=== PATIENT | female | born 1955 | race Two or more races ===

== ENCOUNTER → 2024-08-28 | Outpatient (CLI) | payer MEDICARE, SELFPAY ==
[2024-08-28 17:31] LABS: INR 1.9 (0.9-1.3); Prothrombin Time 19.7 Seconds (9.0-12.2)
== END | disposition home or self-care (01) ==
PROVIDERS: PCP Physician Assistant; Referring Provider Physician Assistant; Visit Provider Physician Assistant
DX: Z79.01 Long term (current) use of anticoagulants (principal)
CPT/HCPCS: 36415; 85610

== ENCOUNTER → 2024-09-04 | Outpatient (CLI) | payer MEDICARE, SELFPAY ==
[2024-09-04 13:47] LABS: INR 1.9 (0.9-1.3); Prothrombin Time 20.3 Seconds (9.0-12.2)
== END | disposition home or self-care (01) ==
LOC: COPL 11:48 → SLDO 11:48
PROVIDERS: PCP Physician Assistant; Referring Provider Physician Assistant; Visit Provider Physician Assistant
DX: I48.20 Chronic atrial fibrillation, unspecified (principal); Z51.81 Encounter for therapeutic drug level monitoring; Z95.2 Presence of prosthetic heart valve
CPT/HCPCS: 36415; 85610

== ENCOUNTER → 2025-01-31 | Outpatient (CLI) | payer OTHER, MEDICAID, SELFPAY ==
--- NOTE | 2025-01-31 10:53 | XR_ITS ---
Examinations: MRI Brain without intravenous contrast. MRI brain with intravenous contrast MRA brain with intravenous contrast. MRA brain without intravenous contrast MRA neck with intravenous contrast Date and time of exam: January 31, 2025 11:59 AM INDICATIONS: Slurred speech ataxia dizziness beginning 3 weeks ago COMPARISON: October 28, 2020 Technique: Multiple axial and sagittal images of the brain have been obtained Siemens high-resolution 1.5 Suzi short bore scanner is utilized. Sagittal sections, T1-weighted, TR 500, TE 14 Axial sections proton density and T2-weighted, TR 3,000, TE 34, TR 3,000, TE 91 Inversion recovery axial images, TR 9,260, TE 111, TI 2,500 Diffusion weighted images, axial sections, TR 4,800, TE 128, B value 1,000 Axial sections, ADC map, TR 4,800, TE 128. Contrast images have been obtained post intravenous 20 cc Gadolinium. T1-weighted axial and coronal images post contrast have been obtained. Angiographic images of neck and brain are obtained pre and post contrast. 3-D post processing performed, including brain, extracranial neck arterial maximum intensity projections Findings: Sellaturcica is not enlarged. The optic chiasm and infundibular stalk are not remarkable. Prepontine and interpeduncular cisterns are not enlarged. No localized enlargement of the medulla or luis miguel. Fourth ventricle and cerebellar tonsils normal in position. Subacute hemorrhage is not seen. Fourth ventricle is midline. Mass in the cerebellopontine angle region is not evident. 7th and 8th nerve complexes exhibits symmetry. Globes are symmetrical with no retro-orbital mass. Increased white matter signal moderate, old infarcts right and left cerebellar hemispheres right and left basal ganglia right frontal lobes left parietal lobe Diffusion-weighted images demonstrateno focus restricted diffusion. Mass-effect upon the ventricular system is not identified. Abnormal contrast enhancement is not seen. MRA brain carotid images no significant carotid stenoses no large vessel cerebral occlusions Impression: Negative for acute hemorrhage mass effect or midline shift No acute infarct Multiple old infarcts No cerebral large vessel arterial occlusions
== END | disposition home or self-care (01) ==
PROVIDERS: PCP Physician Assistant; Referring Provider Physician Assistant; Visit Provider Physician Assistant
DX: R47.81 Slurred speech (principal); R26.81 Unsteadiness on feet; Z86.73 Personal history of transient ischemic attack (TIA), and cerebral infarction without residual deficits
CPT/HCPCS: 70546; 70548; 70553; A9579

== ENCOUNTER 2025-02-10 12:06 | Emergency (ER) | payer OTHER, MEDICAID, SELFPAY ==
[2025-02-10 12:42] VITALS: BP 95/62; PULSE 85; RESP 19; TEMP 36.7; O2SAT 100
--- NOTE | 2025-02-10 12:49 | XR_ITS ---
Examination: CT pelvis left hip, without contrast. 2-D sagittal reconstructions. 2-D coronal reconstructions. 3-D reconstructions. Date and time of exam:February 10, 2025 1527 hours INDICATIONS: Patient fell today with injury to left hip, left hip pain CTDI: vol (mGy):5.81 DLP: (mGycm):159 Technique: Multiple 1.25 mm axial sections of the pelvis left hip have been obtained. 2-D sagittal and coronal reconstructions have been obtained. 3-D reconstructions have been obtained. Low dose protocols were performed. One or more of the following dose reduction techniques were used; automated exposure control, adjustment of the mA and/or KV according to patient size, use of iterative reconstruction technique. Findings: Contracted urinary bladder, no pelvic hematoma No left hip fracture or dislocation Right hip bones of the pelvis intact IMPRESSION: No acute hip or pelvic fracture
--- NOTE | 2025-02-10 12:49 | EKG_ITS ---
[facility] Test Date: 2025-02-10 Pat Name: ROBEL RUSSO Department: Room: - Gender: Female Education Adviser: : 1955 Requested By: Brenden Cabrera (LETY) Order Number: [id number] Reading MD: Brenden Cabrera (BUTTONHOLER) Measurements Intervals [place] Rate: 67 P: 75 [place]: 217 QRS: 18 QRSD: 92 T: 246 QT: 445 QTc: 472 Interpretive Statements SINUS RHYTHM WITH FIRST DEGREE AV BLOCK ST DEVIATION AND MODERATE T-WAVE ABNORMALITY, CONSIDER ANTEROLATERAL ISCHEMIA [-0.1+ mV T-WAVE IN V3-V6] ST DEVIATION AND MODERATE T-WAVE ABNORMALITY, CONSIDER INFERIOR ISCHEMIA [-0.1+ mV T-WAVE IN II/aVF] Compared to ECG 07/25/2024 15:02:13 First degree AV block now present Possible ischemia now present Atrial flutter no longer present Intraventricular conduction delay no longer present T-wave abnormality still present /store/S0/[id number]/[id number].pdf
--- NOTE | 2025-02-10 12:49 | XR_ITS ---
Examination: CT cervical spine without contrast 2-D sagittal reconstructions 2-D coronal reconstructions 3-D reconstructions. Exam date and time:February 10, 2025 1519 hours INDICATIONS: Patient fell today with into the neck, neck pain CTDI:vol (mGy) 7.88 DLP: (mGycm) 165 Technique: Multiple 2 mm axial sections of the cervical spine have been obtained. The coronal and sagittal reconstructions have been obtained. 3-D reconstructions have been obtained. Low dose protocols were performed. One or more of the following dose reduction techniques were used; automated exposure control, adjustment of the mA and/or KV according to patient size, use of iterative reconstruction technique. Findings: Axial sections demonstrate intact base of the skull. C1 exhibit satisfactory relationship to the odontoid. No acute cervical vertebral body fracture seen. Alignment posterior spinous processes satisfactory. Impression: No acute cervical fracture.
--- NOTE | 2025-02-10 12:49 | XR_ITS ---
Examination: CT brain head without contrast. 2-D sagittal coronal reconstructions Date and time of exam:05/13/2025 1418 hours INDICATIONS: Patient fell today with injury to the head, head pain COMPARISON: July 25, 2024 CTDI: vol (mGy):45.5 DLP: (mGycm):844 Technique: Multiple CT axial sections of the brain have been obtained, 5 mm slice thickness. Contrast has not been administered. 2-D sagittal, coronal reconstructions have been obtained Low dose protocols were performed. One or more of the following dose reduction techniques were used; automated exposure control, adjustment of the mA and/or KV according to patient size, use of iterative reconstruction technique. Findings: No significant ventricular enlargement. Intra-axial or extra-axial hemorrhage density is not seen. No mass effect or midline shift Basal cisterns are not remarkable. Fourth ventricle is midline. Cranial vault intact. Old infarcts right frontal lobe left parietal lobe, left cerebellar hemisphere Impression: Negative for acute hemorrhage, mass effect or midline shift
--- NOTE | 2025-02-10 12:50 | PD.EDRME ---
Rapid Medical Screening Exam RME Arrival date/time: 02/10/25 12:06 69-year-old female presents emergency department today stating she had a fall yesterday patient reports left hip pain head and neck pain Chief Complaint: Fall Vital signs: Vital Signs Temperature 98.1 F 02/10/25 12:42 Pulse Rate 85 02/10/25 12:42 Respiratory Rate 19 02/10/25 12:42 Blood Pressure 95/62 02/10/25 12:42 Pulse Oximetry (%) 100 02/10/25 12:42 Oxygen Delivery Method Room Air 02/10/25 12:42
[2025-02-10 13:41] LABS: Basophils # (Auto) 0.1 Thou/mm3 (0.0-0.2); Basophils % (Auto) 1 % (0-2.5); Eosinophils # (Auto) 0.2 Thou/mm3 (0.0-0.5); Eosinophils % (Auto) 4 % (0-10); Hemoglobin 13.1 g/dL (12.0-16.0); Immature Granulocytes % (Auto) 0 % (0-0); Immature Granulocytes Auto 0.01 Thou/mm3 (0.00-0.00); Lymphocytes # (Auto) 1.2 Thou/mm3 (1.0-4.8); Lymphocytes % (Auto) 20 % (10-50); Mean Corpuscular HGB Conc 36.4 g/dl (31.0-37.0); Mean Corpuscular Hemoglobin 29.3 pg (25.0-35.0); Mean Corpuscular Volume 81 fL (80-100); Monocytes # (Auto) 0.4 Thou/mm3 (0.0-0.8); Monocytes % (Auto) 6 % (0-12); Neutrophils # (Auto) 4.2 Thou/mm3 (1.8-7.7); Neutrophils % (Auto) 70 % (37-80); Nucleated Red Blood Cell % 0 /100 WBC (0); Platelet Count 181 Thou/mm3 (140-440); RDW Standard Deviation 39.4 fL (36.4-46.3); Red Blood Count 4.47 Miln/mm3 (4.00-5.20)
[2025-02-10 13:46] LABS: B-Type Natriuretic Peptide 58 pg/mL (0-100)
[2025-02-10 13:54] LABS: Alanine Aminotransferase 97 U/L (10-49); Albumin, Serum 4.1 gm/dL (3.4-4.8); Albumin/Globulin Ratio 1.6 (1.2-2.2); Alkaline Phosphatase 72 U/L (46-116); Anion Gap 11 (7-16); Aspartate Amino Transferase 61 U/L (0-34); BUN/Creatinine Ratio 12 Ratio (12-20); Bilirubin,Total 0.5 mg/dL (0.3-1.2); Blood Urea Nitrogen 21 mg/dL (9-23); Calcium 8.9 mg/dL (8.3-10.6); Calcium (Corrected) 8.9 mg/dL (8.5-10.1); Carbon Dioxide 28.8 mMol/L (20.0-31.0); Chloride 97 mMol/L (98-107); Creatinine (Component) 1.8 mg/dL (0.6-1.3); Globulin 2.6 gm/dL (2.3-3.5); INR 2.9 (0.9-1.3); Magnesium 1.8 mg/dL (1.6-2.6); Osmolality,Calculated 293 (275-295); Partial Thromboplastin Time 40.3 Seconds (22.0-36.0); Potassium 3.2 mMol/L (3.4-5.1); Sodium 137 mMol/L (136-145); Total Protein 6.7 gm/dL (5.7-8.2); Troponin I < 0.020 ng/mL (0.0-0.045); eGFR 30 See Note
[2025-02-10 13:56] LABS: Glucose 405 mg/dL (74-106)
--- NOTE | 2025-02-10 17:00 | PC.NURSE ---
FERNANDO IN LAB CALLED W/ GLUCOSE OF 405. PUT IN COMMENTS FOR PROVIDER TO SEE.
--- NOTE | 2025-02-10 17:14 | PC.NURSE ---
REMINDED MD AND BUSINESS ANALYST OF PT'S GLUCOSE OF 405 AND GAVE THEM PAPER NOTE.
[2025-02-10 18:31] VITALS: BP 117/66; PULSE 76; RESP 18; TEMP 37.5; O2SAT 99
[2025-02-10 19:27] VITALS: BP 152/83; PULSE 73; RESP 18; TEMP 37.3; O2SAT 100
--- NOTE | 2025-02-10 20:26 | PD.EDADULT ---
ED General RME/HPI General Chief complaint: Fall Stated complaint: FELL YESTERDAY, HIT HEAD, ON WARFARIN Time Seen by Provider: 02/10/25 20:14 Arrival date/time: 02/10/25 12:06 CC: Headache hip pain HPI status post fall yesterday. Patient denies LOC or LOC is not on any blood thinners. Patient is awake alert oriented and frustrated as it did not her 8 hours since the patient was seen patient has been sitting in the waiting room with no medication. Patient denies altered level of consciousness, blurred vision seeing spots. He is complaining of mild headache. RME / HPI RME / HPI narrative: 02/10/25 12:06 69-year-old female presents emergency department today stating she had a fall yesterday patient reports left hip pain head and neck pain Related Data Home Medications ?Medication ?Instructions ?Recorded ?Confirmed rosuvastatin 40 mg tablet 40 mg PO QDAY 09/15/21 07/26/24 aripiprazole 15 mg tablet 15 mg PO QDAY 10/05/23 07/26/24 cetirizine 10 mg tablet 10 mg PO QDAY 10/05/23 07/26/24 hydrochlorothiazide 50 mg tablet 50 mg PO QDAY 10/05/23 07/26/24 hydroxyzine HCl 25 mg tablet 25 mg PO HS 10/05/23 07/26/24 losartan 100 mg tablet 100 mg PO QPM 10/05/23 07/26/24 sertraline 100 mg tablet 200 mg PO HS 10/05/23 07/26/24 trazodone 50 mg tablet 50 mg PO HS 10/05/23 07/26/24 ferrous sulfate 325 mg (65 mg 325 mg PO BIDWMEAL 07/03/24 07/26/24 iron) tablet Previous Rx's ?Medication ?Instructions ?Recorded warfarin 5 mg tablet 5 mg PO QDAY #14 tabs 07/17/24 meloxicam 7.5 mg tablet 7.5 mg PO QDAY #10 tabs 02/10/25 Allergies Allergy/AdvReac Type Severity Reaction Status Date / Time aspirin Allergy Severe Gastrointestinal Verified 02/10/25 12:10 Upset Review of Systems Review of Systems Narrative Review of Systems: GEN: No fever, no chills, no weight loss EYES: No discharge, no visual changes, no pain HEENT: No ear pain, no congestion, no sore throat PULM: No shortness of breath, no cough, no congestion CV: No chest pain, no dyspnea on exertion, no palpitations GI: No nausea, no vomiting, no diarrhea, no pain, no constipation : No frequency, no urgency, no dysuria MUSC/SKEL: No joint pain, no back pain SKIN: No rash PSYCH: No hallucinations, no depression HEME/LYMPH: No easy bleeding or bruising tendencies NEURO: No weakness, + headache ED Exam Narrative Physical exam: [General: In mild discomfort but not in any acute distress Head normocephalic, no step-off induration ulceration or depressions. HEENT: Eyes pupils are PERRLA EOMs are intact mouth pink dry membranes uvula is midline swallow symmetrical phonation is normal. No facial asymmetry or bogginess. Nose: No rhinorrhea or epistaxis. All other subsystems HEENT are within acceptable limits Neck is supple nontender no JVD no tenderness full range of motion flexion extension and rotation. Chest equal chest rise nontender to palpation Respiratory: Clear to auscultation no wheezes crackles or rubs CV: Rate rhythm is regular no murmurs rubs or clicks Abdomen is soft nontender no masses positive bowel sounds all 4 quadrants Back: No CVA tenderness no spinous process tenderness from cervical spine thoracic and lumbar spine Skin: Intact no petechiae rash induration ulceration or crepitus Extremities: Moving all extremity against resistance cap refill less than 2 seconds neurosensory intact Neuro: Awake alert oriented x2, person and place, Glascow coma 15 no focal deficits] Course Course Course Narrative: when comparing her labs with old labs the patient has significant elevated blood glucose level 406, and has a creatinine of 1.8 which is a new acute finding. At this time the patient and the family member extremely frustrated because the long delay in being seen, they are refusing IV fluids for attempt to correct elevated creatinine as this is not prerenal. As an alternative they said they will go home and she will drink plenty of fluids. I agreed to give the patient insulin subcu for the hyperglycemia. This is as a result of mixup in prescriptions and she has not had her insulin medication which includes Jardiance and metformin in close to 1 week. Family member at bedside state that they will pick that up tomorrow. Patient is then to follow-up in the next 2 to 3 days for recheck of her renal function. Quality Measures none Orders Category Date Time Status EKG (ED ONLY) *Do not use* NOW Care 02/10/25 12:[address] cervical spine wo con Stat Exams 02/10/25 12:[address] head/brain wo con Stat Exams 02/10/25 12:[address] hip LT wo con Stat Exams 02/10/25 12:49 Completed EKG (ED Only) Stat Exams 02/10/25 12:49 Draft B-Type Natriuretic Peptide Stat Lab 02/10/25 13:05 Completed CBC Stat Lab 02/10/25 13:05 Completed Comprehensive Metabolic Panel Stat Lab 02/10/25 13:05 Completed Magnesium Stat Lab 02/10/25 13:05 Completed Partial Thromboplastin Time Stat Lab 02/10/25 13:05 Completed Prothrombin Time with INR Stat Lab 02/10/25 13:05 Completed Troponin I Stat Lab 02/10/25 13:05 Completed Type and Screen Stat Lab 02/10/25 13:05 Completed Urinalysis Stat Lab 02/10/25 12:49 Ordered Insulin Regular Med 02/10/25 20:23 Discontinued 5 unit SC X1 ONE oxyCODONE/APAP 5/325 [Percocet 5/325] Med 02/10/25 20:23 Discontinued 1 tab PO X1 ONE Vital Signs Vital signs: Vital Signs Temperature 98.1 F 02/10/25 12:42 Pulse Rate 85 02/10/25 12:42 Respiratory Rate 19 02/10/25 12:42 Blood Pressure 95/62 02/10/25 12:42 Pulse Oximetry (%) 100 02/10/25 12:42 Oxygen Delivery Method Room Air 02/10/25 12:42 Discharge Plan Plan Patient Disposition: HOME (Self Care) Patient condition on transfer: Stable Prescriptions/Referrals Prescriptions/Med Rec: New meloxicam 7.5 mg tablet 7.5 mg PO QDAY Qty: 10 0RF No Action rosuvastatin 40 mg tablet 40 mg PO QDAY trazodone 50 mg Tablet 50 mg PO HS cetirizine 10 mg Tablet 10 mg PO QDAY hydrochlorothiazide 50 mg Tablet 50 mg PO QDAY sertraline 100 mg Tablet 200 mg PO HS hydroxyzine HCl 25 mg Tablet 25 mg PO HS losartan 100 mg Tablet 100 mg PO QPM aripiprazole 15 mg Tablet 15 mg PO QDAY ferrous sulfate 325 mg (65 mg iron) Tablet 325 mg PO BIDWMEAL warfarin 5 mg tablet 5 mg PO QDAY Qty: 14 2RF Referrals: Bernadette Jones PA-C [Primary Care Provider] - In 1 week Problem List Clinical Impression: Fall, Contusion of hip, Headache, Hyperglycemia due to diabetes mellitus, Acute renal insufficiency Patient/Caregiver Discharge Instructions Other Activity Instructions:: As you have stated please pickle solution maker the medications metformin and Jardiance at the pharmacy tomorrow and start them immediately. If you are unable to do so return the emergency room for blood sugar management. Make sure you drink plenty of fluids as you have stressed your kidneys. Please follow-up promptly in the next 2 to 3 days with your PCP to get this reassessed. Education Materials: Bruises (Contusions), Understanding Type 2 Diabetes Print Language: Danish Stand Alone Forms: Cytoo Award Info., Patient Portal Info Letter, Work/School Release PA/KESHIA Supervising Physician PA/KESHIA Supervising Physician: Jus Garcia ENP [facility] Clinical Information Provided by: patient Medical Records reviewed [facility] EKG Interpretation EKG #1: EKG Interpretation: EKG performed at 1300 shows ventricular rate of 6 7 MT interval of 217 QRS of 92 QTc of 461 sinus rhythm first-degree block nonspecific T wave abnormalities. Labs Lab(s) Interpretation(s): CBC shows no acute leukocytosis anemia thrombocytopenia Coags show a PT of 29 INR 2.9 and PTT of 40.3. Note patient is on Coumadin. CMP shows a potassium of 3.2 acquired of 9 7 BUN of 21 creatinine of 1.8 note the patient has not had a creatinine this high in previous records of lab draws. Glucose at 405. There is no gap. T. bili is 0.5 AST 61 ALT is 97 alk phos at 72 Troponin at less than 0.02 BMP is within acceptable limits Imaging Imaging Interpretation(s): CT head and C-spine as interpreted me read by radiology as negative, CT of hip is negative for any acute fracture malalignment or dislocation as interpreted me read by radiology. Medication Administration(s) Medication Administration History Discontinued Medications Insulin Human Regular (Insulin Hum Regular 1 Unit/0.01 Ml (Per Unit)) 5 unit SC X1 ONE Stop: 02/10/25 20:24 Oxycodone/Acetaminophen (Oxycodone/Apap 5/325 Tablet) 1 tab PO X1 ONE Stop: 02/10/25 20:24
[2025-02-10] MEDS: oxyCODONE/APAP 5/325 TABLET 1 TAB PO (20:30)
[2025-02-10] MEDS: INSULIN HUM REGULAR 1 UNIT/0.01 ML (PER UNIT) 5 UNIT SC (20:31)
== END 2025-02-10 20:47 | disposition home or self-care (01) ==
PROVIDERS: Nurse Practitioner Primary Care; Emergency Provider Emergency Medicine; PCP Physician Assistant
DX: S70.02XA Contusion of left hip, initial encounter (principal); S09.90XA Unspecified injury of head, initial encounter; E11.65 Type 2 diabetes mellitus with hyperglycemia; N28.9 Disorder of kidney and ureter, unspecified; M54.2 Cervicalgia; I44.0 Atrioventricular block, first degree; W19.XXXA Unspecified fall, initial encounter
CPT/HCPCS: 36415; 70450; 72125; 73700; 80053; 81001; 83735; 83880; 84484; 85025; 85610; 85730; 86850; 86900; 86901; 93005; 96372; 99284; J1815; A9270

== ENCOUNTER 2025-04-12 15:21 | Emergency (ER) | payer OTHER, MEDICAID, SELFPAY ==
[2025-04-12 16:28] VITALS: BP 123/71; PULSE 83; RESP 18; TEMP 36.8; O2SAT 95; BMI 24.0
--- NOTE | 2025-04-12 16:59 | PD.EDRECHK ---
ED Recheck Abnl Lab Rx-RME/HPI General Chief Complaint: Recheck/Abnormal Lab/Rx Stated Complaint: High blood sugar Time Seen by Provider: 04/12/25 16:37 Arrival date/time: 04/12/25 15:21 Mode of arrival: ambulatory Limitations: no limitations RME / HPI RME / HPI narrative: 69-year-old female history of hypertension, diabetes, bipolar disorder is here today with hyperglycemia. She states she has been checking her sugars at home and her sugars have ranged between 300-400. Patient states she went to clinic today and was found to here for further evaluation. She reports having mild dizziness and nausea. She has had no vomiting. No fevers or chills. No diarrhea. She has no other acute complaints. Related Data Home Medications ?Medication ?Instructions ?Recorded ?Confirmed rosuvastatin 40 mg tablet 40 mg PO QDAY 09/15/21 07/26/24 aripiprazole 15 mg tablet 15 mg PO QDAY 10/05/23 07/26/24 cetirizine 10 mg tablet 10 mg PO QDAY 10/05/23 07/26/24 hydrochlorothiazide 50 mg tablet 50 mg PO QDAY 10/05/23 07/26/24 hydroxyzine HCl 25 mg tablet 25 mg PO HS 10/05/23 07/26/24 losartan 100 mg tablet 100 mg PO QPM 10/05/23 07/26/24 sertraline 100 mg tablet 200 mg PO HS 10/05/23 07/26/24 trazodone 50 mg tablet 50 mg PO HS 10/05/23 07/26/24 ferrous sulfate 325 mg (65 mg 325 mg PO BIDWMEAL 07/03/24 07/26/24 iron) tablet Previous Rx's ?Medication ?Instructions ?Recorded warfarin 5 mg tablet 5 mg PO QDAY #14 tabs 07/17/24 meloxicam 7.5 mg tablet 7.5 mg PO QDAY #10 tabs 02/10/25 cephalexin 500 mg capsule 500 mg PO Q8H 7 days #21 caps 04/12/25 Allergies Allergy/AdvReac Type Severity Reaction Status Date / Time aspirin Allergy Severe Gastrointestinal Verified 04/12/25 15:26 Upset Review of Systems Review of Systems Systems Reviewed: All systems reviewed, normal except as documented ED Exam General Limitations: Present no limitations General appearance: Present alert and in no apparent distress Head Head exam: Present atraumatic Eye Eye exam: Present normal appearance, PERRL and EOMI ENT ENT exam: Present normal exam, normal oropharynx and mucous membranes moist Neck Neck exam: Present normal inspection, full ROM and trachea midline Chest Chest inspection: Present normal inspection and symmetric chest wall rise Respiratory Respiratory exam: Present normal lung sounds bilaterally Cardiovascular Cardiovascular exam: Present regular rate, normal rhythm and normal heart sounds Abdominal Exam Abdominal exam: Present soft and normal bowel sounds Extremities Exam Extremities exam: Present normal inspection and full ROM Back Exam Back exam: Present normal inspection and full ROM Neurological Exam Neurological exam: Present alert and oriented X3 Psychiatric Psychiatric exam: Present normal mood and other (Affect is flat) Skin Skin exam: Present warm, dry, intact and normal color Course Quality Measures none Orders Category Date Time Status Bedside Blood Glucose NOW Care 04/12/25 17:57 Completed Insert IV NOW Care 04/12/25 17:14 Completed CBC Stat Lab 04/12/25 17:10 Completed CMP [Comprehensive Metabolic Panel] Stat Lab 04/12/25 17:10 Completed Ketone [Beta Hydroxybutyrate] Stat Lab 04/12/25 17:10 Completed Lipase Stat Lab 04/12/25 17:10 Completed UA, C/S IF [Urinalysis, C/S if Indicated] Stat Lab 04/12/25 18:36 Completed Ondansetron Odt [Zofran Odt] Med 04/12/25 16:58 Discontinued 4 mg PO X1 ONE Potassium Chloride [K-Dur] Med 04/12/25 17:57 Discontinued 20 meq PO X1 ONE Sodium Chloride 0.9% 1000 ml [Ns] 1,000 ml Med 04/12/25 16:59 Discontinued IV 999 mls/hr cephALEXin [Keflex] Med 04/12/25 19:36 Discontinued 500 mg PO X1 ONE Vital Signs Vital signs: Vital Signs Temperature 98.3 F 04/12/25 16:28 Pulse Rate 83 04/12/25 16:28 Respiratory Rate 18 04/12/25 16:28 Blood Pressure 123/71 04/12/25 16:28 Pulse Oximetry (%) 95 04/12/25 16:28 Oxygen Delivery Method Room Air 04/12/25 16:28 Recheck / Abnormal Lab / Rx MDM Narrative MDM Narrative:: 69-year-old female history of hypertension, diabetes, bipolar disorder is here today with hyperglycemia. She states she has been checking her sugars at home and her sugars have ranged between 300-400. Patient states she went to clinic today and was found to here for further evaluation. She reports having mild dizziness and nausea. She has had no vomiting. No fevers or chills. No diarrhea. She has no other acute complaints. On exam patient is nontoxic-appearing in no visible signs distress. Vital signs are stable. Workup revealed patient has an acute UTI. She was started on cephalexin. She agrees to increase oral hydration. Use the provided antibiotic as prescribed. Follow-up with her clinic this week for recheck. Return at anytime for any worsening or emergent changes. Patient data External records reviewed:: None Clinical information provided by:: patient Social determinants that could affect healthcare access:: none Patient has the following chronic illnesses:: Diabetes, hypertension, hyperlipidemia How is presenting disease/condition affected by chronic disease/condition?: exacerbated by Evaluation data The following diagnostics were reviewed and interpreted by me:: lab results (Patient has no leukocytosis or anemia. Metabolic panel reveals a mild hypokalemia at 3.2, glucose is 259 initially, metabolic panel is otherwise unremarkable. Urinalysis significant for UTI.) Lab and/or radiology exams considered but not ordered:: n/a Interpretation Summary: Hyperglycemia if UTI Medications / Prescriptions Medications or Prescriptions considered but not ordered:: n/a Medication administrations:: Medication Administration History Discontinued Medications Cephalexin HCl (Cephalexin 250 Mg Capsule) 500 mg PO X1 ONE Stop: 04/12/25 19:37 Last Admin: 04/12/25 19:49 Dose: 500 mg Documented By: DIETER Sodium Chloride (Ns) 1,000 mls @ 999 mls/hr IV .Q1H1M ONE Stop: 04/12/25 17:59 Last Infusion: 04/12/25 18:16 Dose: Infused Documented By: Admin: 04/12/25 17:15 Dose: 999 mls/hr Documented By: PATRICE Ondansetron HCl (Ondansetron Odt 4 Mg Tabrap) 4 mg PO X1 ONE; Protocol Stop: 04/12/25 16:59 Last Admin: 04/12/25 17:15 Dose: 4 mg Documented By: PATRICE Potassium Chloride (Potassium Chloride 20 Meq Tabcr) 20 meq PO X1 ONE Stop: 04/12/25 17:58 Last Admin: 04/12/25 18:31 Dose: 20 meq Documented By: EF See above Consultations Consultation(s) initiated? (list below): No Diagnosis Recheck Differential Diagnosis: other (Hyperglycemia, DKA, hyponatremia, UTI) Most likely diagnosis given after review of the tests above:: UTI, hyperglycemia Admission Indicated Admission indicated?: not indicated Admission Request Was there a request for admission?: No Disposition Plan Disposition Plan: Discharge Discharge Attestation Discharge Attestation: The patient and all family members were given an opportunity to ask questions and understood the discharge instructions. Discharge instructions specifically effects, indications for sooner follow up or return to the emergency department, and the expected course of current diagnosis. Patient condition: Stable Discharge Plan Plan Patient Disposition: HOME (Self Care) Prescriptions/Referrals Prescriptions/Med Rec: New cephalexin 500 mg capsule 500 mg PO Q8H 7 Days Qty: 21 0RF No Action rosuvastatin 40 mg tablet 40 mg PO QDAY meloxicam 7.5 mg tablet 7.5 mg PO QDAY Qty: 10 0RF trazodone 50 mg Tablet 50 mg PO HS cetirizine 10 mg Tablet 10 mg PO QDAY hydrochlorothiazide 50 mg Tablet 50 mg PO QDAY sertraline 100 mg Tablet 200 mg PO HS hydroxyzine HCl 25 mg Tablet 25 mg PO HS losartan 100 mg Tablet 100 mg PO QPM aripiprazole 15 mg Tablet 15 mg PO QDAY ferrous sulfate 325 mg (65 mg iron) Tablet 325 mg PO BIDWMEAL warfarin 5 mg tablet 5 mg PO QDAY Qty: 14 2RF Referrals: No Primary/Family,Physician [Primary Care Provider] - In 1 week Problem List Clinical Impression: Acute UTI, Acute hyperglycemia Patient/Caregiver Discharge Instructions Additional Instructions: -Use the provided antibiotic as prescribed. -Follow up with your clinic in 1-2 weeks. -Return here as needed for any emergent changes. Print Language: Portuguese Stand Alone Forms: Keyla Award Info., Patient Portal Info Letter
[2025-04-12] MEDS: ONDANSETRON ODT 4 MG TABRAP PO (17:15)
[2025-04-12] MEDS: SODIUM CHLORIDE 0.9% 1000 ML 1,000 ML 999 ML IV (17:15)
[2025-04-12 17:34] LABS: Beta Hydroxybutyrate 0.2 mmol/L (<0.6)
[2025-04-12 17:39] LABS: Basophils # (Auto) 0.0 Thou/mm3 (0.0-0.2); Basophils % (Auto) 1 % (0-2.5); Eosinophils # (Auto) 0.1 Thou/mm3 (0.0-0.5); Eosinophils % (Auto) 2 % (0-10); Hematocrit 39.0 % (36.0-46.0); Hemoglobin 13.7 g/dL (12.0-16.0); Immature Granulocytes Auto 0.00 Thou/mm3 (0.00-0.00); Lymphocytes # (Auto) 2.4 Thou/mm3 (1.0-4.8); Lymphocytes % (Auto) 43 % (10-50); Mean Corpuscular HGB Conc 35.1 g/dl (31.0-37.0); Mean Corpuscular Hemoglobin 29.7 pg (25.0-35.0); Mean Corpuscular Volume 84 fL (80-100); Monocytes # (Auto) 0.5 Thou/mm3 (0.0-0.8); Monocytes % (Auto) 8 % (0-12); Neutrophils # (Auto) 2.6 Thou/mm3 (1.8-7.7); Neutrophils % (Auto) 46 % (37-80); Nucleated Red Blood Cell # 0.00 Thou/mm3 (0.00-0.00); Nucleated Red Blood Cell % 0 /100 WBC (0); Platelet Count 174 Thou/mm3 (140-440); RDW Standard Deviation 43.4 fL (36.4-46.3); Red Blood Count 4.62 Miln/mm3 (4.00-5.20); White Blood Count 5.6 Thou/mm3 (3.6-11.0)
[2025-04-12 17:49] LABS: Alanine Aminotransferase 24 U/L (10-49); Albumin, Serum 4.4 gm/dL (3.4-4.8); Albumin/Globulin Ratio 1.6 (1.2-2.2); Alkaline Phosphatase 99 U/L (46-116); Anion Gap 14 (7-16); Aspartate Amino Transferase 26 U/L (0-34); BUN/Creatinine Ratio 18 Ratio (12-20); Bilirubin,Total 0.3 mg/dL (0.3-1.2); Blood Urea Nitrogen 20 mg/dL (9-23); Calcium 9.7 mg/dL (8.3-10.6); Calcium (Corrected) 9.7 mg/dL (8.5-10.1); Carbon Dioxide 25.6 mMol/L (20.0-31.0); Chloride 100 mMol/L (98-107); Creatinine (Component) 1.1 mg/dL (0.6-1.3); Estimated Creatinine Clearance 50.1 mL/min (>60); Globulin 2.7 gm/dL (2.3-3.5); Glucose 259 mg/dL (74-106); Lipase 56 U/L (12-53); Osmolality,Calculated 291 (275-295); Potassium 3.2 mMol/L (3.4-5.1); Sodium 140 mMol/L (136-145); Total Protein 7.1 gm/dL (5.7-8.2); eGFR 55 See Note
[2025-04-12 18:09] VITALS: BP 166/77; PULSE 62; RESP 14; TEMP 37.1; O2SAT 96
[2025-04-12 18:55] LABS: Collection Type, Urine Voided
[2025-04-12 19:07] LABS: Bacteria,Urine Rare; Bilirubin,Urine Negative (Negative); Blood,Urine 2+ (Negative); Color,Urine Yellow (Lt Yel-Yel); Culture Indicated,Urine Contaminated; Glucose, Urine 4+ (Negative); Ketones,Urine Negative (Negative); Leukocyte Esterase,Urine Positive (Negative); Nitrite,Urine Negative (Negative); PH,Urine 6.5 (5.0-7.0); Protein,Urine Trace (Neg - Trace); RBC,Urine 67 /hpf (0-3); Specific Gravity,Urine 1.014 (1.001-1.035); Squamous Epithelial Cell,Urine 13 /hpf (0-5); Urobilinogen,Urine Negative mg/dL (0.0-1.0); WBC,Urine 1491 /hpf (0-5)
[2025-04-12 19:09] LABS: Clarity,Urine Turbid (Clear/Hazy)
== END 2025-04-12 20:06 | disposition home or self-care (01) ==
PROVIDERS: Physician Assistant Medical; Emergency Provider Emergency Medicine
DX: N39.0 Urinary tract infection, site not specified (principal); E11.65 Type 2 diabetes mellitus with hyperglycemia
CPT/HCPCS: 36415; 80053; 81001; 82010; 83690; 85025; 96360; 99284; J7030; Q0162; A9270

== ENCOUNTER 2025-05-24 10:57 | Emergency (ER) | payer OTHER, MEDICAID, SELFPAY ==
[2025-05-24] VITALS (7 sets, daily range): BP systolic 130–204; BP diastolic 67–120; PULSE 76–92; RESP 16–18; TEMP 36.4–36.8; O2SAT 96–98; BMI 21.4
--- NOTE | 2025-05-24 12:07 | XR_ITS ---
Examination: CT abdomen with intravenous contrast CT pelvis with intravenous contrast 2-D coronal reconstructions 2-D sagittal reconstructions Date and time of exam:May 24, 2025 1449 hours INDICATIONS: Abdominal pain and diarrhea beginning one week ago. CTDI: vol (mGy) 5.86. DLP: (mGycm) 288. Technique: Multiple axial sections of the abdomen and pelvis have been obtained. 64 slice high-resolution scanner used. 3 mm axial sections have been obtained, post intravenous injection 60 cc Isovue 370. 2-D sagittal, coronal reconstructions obtained. Low dose protocols were performed. One or more of the following dose reduction techniques were used; automated exposure control, adjustment of the mA and/or KV according to patient size, use of iterative reconstruction technique. Findings: Atelectasis in the lower lobes No focal liver or splenic lesions No gallstones No pancreatic or adrenal mass No renal or ureteral calculi, no hydronephrosis Normal appendix The colon shows wall thickening and mild hyperemia No bowel obstruction No bladder mass or bladder calculi Absent uterus Severe osteopenia with chronic osteoporotic compression L2 and advanced disc narrowing L5-S1 IMPRESSION: Diffuse nonspecific colitis pattern, differential would include also ulcerative colitis, Crohn's disease
--- NOTE | 2025-05-24 12:07 | EKG_ITS ---
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: : 1955 Requested By: Montserrat Puckett Order Number: [id number] Reading MD: Montserrat Puckett Measurements Intervals [place] Rate: 62 P: [place]: QRS: 187 QRSD: 108 T: 107 QT: 488 QTc: 497 Interpretive Statements ATRIAL FIBRILLATION SEPTAL MYOCARDIAL INFARCTION , PROBABLY OLD [40+ ms Q WAVE IN V1/V2] LATERAL MYOCARDIAL INFARCTION , PROBABLY RECENT [40+ ms Q WAVE AND/OR ST/T ABNORMALITY IN I/aVL/V5/V6] ACUTE [place] Compared to ECG 02/10/2025 13:00:16 Myocardial infarct finding now present Sinus rhythm no longer present First degree AV block no longer present T-wave abnormality no longer present Possible ischemia no longer present /store/S0/[id number]
--- NOTE | 2025-05-24 12:09 | PD.EDNV ---
Nausea/Vomit./Diarrhea-RME/HPI General Chief complaint: Nausea/Vomiting/Diarrhea Stated complaint: Diarrhea X 1 week, weak Time Seen by Provider: 05/24/25 11:27 Arrival date/time: 05/24/25 10:57 RME / HPI RME / HPI Narrative: 69-year-old female patient with significant history of hypertension diabetes mellitus, psychiatric problem, was brought in by caregiver for evaluation regarding lower abdominal pain. Patient has been having lower abdominal pain, for several days, associated with nausea vomiting diarrhea. Patient also complained of generalized body weakness. No fever noted no blood in the diarrhea. Denies any other complaints. No medications taken prior to arrival. Related Data Home Medications ?Medication ?Instructions ?Recorded ?Confirmed rosuvastatin 40 mg tablet 40 mg PO QDAY 09/15/21 07/26/24 aripiprazole 15 mg tablet 15 mg PO QDAY 10/05/23 07/26/24 cetirizine 10 mg tablet 10 mg PO QDAY 10/05/23 07/26/24 hydrochlorothiazide 50 mg tablet 50 mg PO QDAY 10/05/23 07/26/24 hydroxyzine HCl 25 mg tablet 25 mg PO HS 10/05/23 07/26/24 losartan 100 mg tablet 100 mg PO QPM 10/05/23 07/26/24 sertraline 100 mg tablet 200 mg PO HS 10/05/23 07/26/24 trazodone 50 mg tablet 50 mg PO HS 10/05/23 07/26/24 ferrous sulfate 325 mg (65 mg 325 mg PO BIDWMEAL 07/03/24 07/26/24 iron) tablet Previous Rx's ?Medication ?Instructions ?Recorded warfarin 5 mg tablet 5 mg PO QDAY #14 tabs 07/17/24 meloxicam 7.5 mg tablet 7.5 mg PO QDAY #10 tabs 02/10/25 ciprofloxacin HCl 500 mg tablet 500 mg PO BID #14 tabs 05/24/25 (Cipro) dicyclomine 20 mg tablet 20 mg PO QID PRN abdominal pain 05/24/25 #20 tabs famotidine 20 mg tablet (Pepcid AC) 20 mg PO BID #14 tabs 05/24/25 metronidazole 500 mg tablet 500 mg PO BID 7 days #14 tabs 05/24/25 Allergies Allergy/AdvReac Type Severity Reaction Status Date / Time aspirin Allergy Severe Gastrointestinal Verified 05/24/25 11:00 Upset Review of Systems Review of Systems Narrative Review of Systems: Review of system reviewed and within normal limits except mentioned in HPI ED Exam Narrative Physical exam: VITAL SIGNS: Reviewed. GENERAL APPEARANCE: Alert and interactive, follows commands, no acute distress, HEAD AND FACE: Non-traumatic. ENT: PERRL, pink conjunctivitis, eyelid no trauma, Mucous membrane moist. NECK: Supple, nontender, no nuchal rigidity. CHEST: No tenderness, no crepitus, no paradoxical movement, no retractions. LUNGS: Clear, well ventilated, symmetric, no rales, no wheezing, no ronchi, no stridor, good breath sounds bilaterally. HEART: Regular rate, regular rhythm, no murmur, no gallops. ABDOMEN: Soft, positive bowel sounds, nondistended, no guarding, lower abdominal tenderness, no rebound, no masses, RECTAL: Deferred. GENITAL: Deferred. NEUROLOGICAL: Gross motor function intact sensory function intact, Appropriate for age. MUSCULOSKELETAL: low back nontender, full range of motion. EXTREMITIES: Nontender, full range of motion. SKIN: Color pink, dry, no rash, no lacerations, no abrasions, no contusions. LYMPHATICS: Deferred. Course Quality Measures none Orders Category Date Time Status CT Screening NOW Care 05/24/25 12:08 Active EKG (ED ONLY) *Do not use* NOW Care 05/24/25 12:[address] abdomen pelvis w con Stat Exams 05/24/25 12:07 Completed EKG (ED Only) Stat Exams 05/24/25 12:07 Draft CBC Stat Lab 05/24/25 12:35 Completed Comprehensive Metabolic Panel Stat Lab 05/24/25 12:35 Completed Lipase Stat Lab 05/24/25 12:35 Completed PTT [Partial Thromboplastin Time] Stat Lab 05/24/25 12:35 Completed Prothrombin Time with INR Stat Lab 05/24/25 12:35 Completed UA, C/S IF [Urinalysis, C/S if Indicated] Stat Lab 05/24/25 14:14 Completed Acetaminophen Tab [Tylenol ES Tab] Med 05/24/25 16:44 Discontinued 1,000 mg PO X1 ONE Famotidine Inj [Pepcid Inj] Med 05/24/25 12:07 Discontinued 20 mg IVP X1 ONE Ondansetron Inj [Zofran Inj] Med 05/24/25 12:07 Discontinued 4 mg IVP X1 ONE Potassium Chloride [K-Dur] Med 05/24/25 14:26 Discontinued 40 meq PO X1 ONE Potassium Chloride [K-Dur] Med 05/24/25 18:35 Once 40 meq PO X1 ONE Ringers Lactated 1000 ml [Lactated Ringers] 1,000 ml Med 05/24/25 12:08 Discontinued IV 999 mls/hr cefTRIAXone/D5w 1gm IV premix [Rocephin/D5w 1gm IV Med 05/24/25 15:05 Discontinued premix] 1 gm in 50 ml IV X1 hydrALAZINE INJ [Apresoline Inj] Med 05/24/25 16:44 Discontinued 20 mg IVP X1 ONE Vital Signs Vital signs: Vital Signs Temperature 98.2 F 05/24/25 11:43 Pulse Rate 85 05/24/25 11:43 Respiratory Rate 18 05/24/25 11:43 Pulse Oximetry (%) 98 05/24/25 11:43 Oxygen Delivery Method Room Air 05/24/25 11:43 Nausea/Vomiting/Diarrhea MDM Narrative MDM Narrative:: 69-year-old female patient with significant history of hypertension diabetes mellitus, psychiatric problem, was brought in by caregiver for evaluation regarding lower abdominal pain. Patient has been having lower abdominal pain, for several days, associated with nausea vomiting diarrhea. Patient also complained of generalized body weakness. No fever noted no blood in the diarrhea. Denies any other complaints. No medications taken prior to arrival. Patient's workup is significant for UTI. No leukocytosis noted. However. Patient's INR today was noted to be 3.6. Patient was advised not to take her Coumadin tomorrow and talk to her doctor for Monday dose. Patient potassium was noted to be 2.9 total of 80 mEq potassium was given. CT scan of the abdomen pelvis showed Diffuse nonspecific colitis pattern, differential would include also ulcerative colitis, Crohn's disease Patient received IV fluids, IV ceftriaxone. Patient was also given Tylenol Pepcid hydralazine Zofran potassium replacement and Flagyl and Cipro. Patient data External records reviewed:: None Clinical information provided by:: patient and family Social determinants that could affect healthcare access:: none Patient has the following chronic illnesses:: Hypertension How is presenting disease/condition affected by chronic disease/condition?: exacerbated by Evaluation data The following diagnostics were reviewed and interpreted by me:: lab results and radiology exam(s) Lab and/or radiology exams considered but not ordered:: None Interpretation Summary: See results MDM Medications / Prescriptions Medications / Prescriptions considered but not ordered:: None Medication administrations:: Medication Administration History Discontinued Medications Acetaminophen (Acetaminophen 500 Mg Tablet) 1,000 mg PO X1 ONE Stop: 05/24/25 16:45 Last Admin: 05/24/25 16:49 Dose: 1,000 mg Documented By: PARVEEN Famotidine (Famotidine Inj 10 Mg/Ml Vial 2 Ml) 20 mg IVP X1 ONE Stop: 05/24/25 12:08 Last Admin: 05/24/25 12:35 Dose: 20 mg Documented By: PARVEEN Hydralazine HCl (Hydralazine Inj 20 Mg/Ml Vial) 20 mg IVP X1 ONE Stop: 05/24/25 16:45 Last Admin: 05/24/25 16:49 Dose: 20 mg Documented By: PARVEEN Lactated Ringer's (Lactated Ringers) 1,000 mls @ 999 mls/hr IV .Q1H1M ONE Stop: 05/24/25 13:08 Last Infusion: 05/24/25 14:38 Dose: Infused Documented By: Admin: 05/24/25 12:51 Dose: 999 mls/hr Documented By: PARVEEN Ceftriaxone Sodium/Dextrose (Rocephin/D5w 1gm Iv Premix) 1 gm in 50 mls @ 100 mls/hr IV X1 ONE Stop: 05/24/25 15:34 Last Infusion: 05/24/25 15:49 Dose: Infused Documented By: Admin: 05/24/25 15:15 Dose: 100 mls/hr Documented By: ELMER Ondansetron HCl (Ondansetron Inj 2 Mg/Ml Inj 2 Ml) 4 mg IVP X1 ONE; Protocol Stop: 05/24/25 12:08 Last Admin: 05/24/25 12:35 Dose: 4 mg Documented By: PARVEEN Potassium Chloride (Potassium Chloride 20 Meq Tabcr) 40 meq PO X1 ONE Stop: 05/24/25 14:27 Last Admin: 05/24/25 15:07 Dose: 40 meq Documented By: ELMER Potassium replacement Zofran ceftriaxone IV fluids hydralazine Pepcid and Tylenol Consultations Consultation(s) initiated? (list below): No Diagnosis Nausea Differential Diagnosis: traveler's diarrhea, gastroenteritis, drug-induced nausea and vomiting and dehydration Most likely diagnosis given after review of the tests above:: UTI, colitis Admission Indicated Admission indicated?: not indicated Admission Request Was there a request for admission?: No Disposition Plan Disposition Plan: Discharge Discharge Attestation Discharge Attestation: The patient and all family members were given an opportunity to ask questions and understood the discharge instructions. Discharge instructions specifically effects, indications for sooner follow up or return to the emergency department, and the expected course of current diagnosis. Patient condition: Stable Discharge Plan Plan Patient Disposition: HOME (Self Care) Discharge Disposition comment: stable Prescriptions/Referrals Prescriptions/Med Rec: New ciprofloxacin HCl [Cipro] 500 mg tablet 500 mg PO BID Qty: 14 0RF metronidazole 500 mg tablet 500 mg PO BID 7 Days Qty: 14 0RF dicyclomine 20 mg tablet 20 mg PO QID PRN (Reason: abdominal pain) Qty: 20 0RF famotidine [Pepcid AC] 20 mg tablet 20 mg PO BID Qty: 14 0RF No Action rosuvastatin 40 mg tablet 40 mg PO QDAY meloxicam 7.5 mg tablet 7.5 mg PO QDAY Qty: 10 0RF trazodone 50 mg Tablet 50 mg PO HS cetirizine 10 mg Tablet 10 mg PO QDAY hydrochlorothiazide 50 mg Tablet 50 mg PO QDAY sertraline 100 mg Tablet 200 mg PO HS hydroxyzine HCl 25 mg Tablet 25 mg PO HS losartan 100 mg Tablet 100 mg PO QPM aripiprazole 15 mg Tablet 15 mg PO QDAY ferrous sulfate 325 mg (65 mg iron) Tablet 325 mg PO BIDWMEAL warfarin 5 mg tablet 5 mg PO QDAY Qty: 14 2RF Referrals: Bernadette Jones PA-C [Primary Care Provider] - In 1 week Problem List Clinical Impression: UTI (urinary tract infection), Colitis Patient/Caregiver Discharge Instructions Discharge Activity: activity as tolerated Education Materials: Understanding Colitis Additional Instructions: Thank you for the opportunity for serving you today. You are stable for discharged . You are advised to: Follow-up with your PCP in 1 to 2 days Return to ED for worsening of symptoms Increase oral fluids Take medication as prescribed Print Language: Afghan Stand Alone Forms: Keyla Award Info., Patient Portal Info Letter PA/KESHIA Supervising Physician PA/KESHIA Supervising Physician: MD Sangeetha
[2025-05-24] MEDS: ONDANSETRON INJ 2 MG/ML INJ 2 ML 4 MG IVP (12:35)
[2025-05-24] MEDS: FAMOTIDINE INJ 10 MG/ML VIAL 2 ML 20 MG IVP (12:35)
[2025-05-24] MEDS: RINGERS LACTATED 1000 ML 1,000 ML 999 ML IV (12:51)
[2025-05-24 13:01] LABS: Basophils # (Auto) 0.0 Thou/mm3 (0.0-0.2); Basophils % (Auto) 1 % (0-2.5); Eosinophils # (Auto) 0.1 Thou/mm3 (0.0-0.5); Eosinophils % (Auto) 2 % (0-10); Hematocrit 43.2 % (36.0-46.0); Hemoglobin 14.5 g/dL (12.0-16.0); Immature Granulocytes Auto 0.00 Thou/mm3 (0.00-0.00); Lymphocytes # (Auto) 1.5 Thou/mm3 (1.0-4.8); Lymphocytes % (Auto) 30 % (10-50); Mean Corpuscular HGB Conc 33.6 g/dl (31.0-37.0); Mean Corpuscular Hemoglobin 28.9 pg (25.0-35.0); Mean Corpuscular Volume 86 fL (80-100); Monocytes # (Auto) 0.4 Thou/mm3 (0.0-0.8); Monocytes % (Auto) 9 % (0-12); Neutrophils # (Auto) 2.9 Thou/mm3 (1.8-7.7); Neutrophils % (Auto) 59 % (37-80); Nucleated Red Blood Cell # 0.00 Thou/mm3 (0.00-0.00); Nucleated Red Blood Cell % 0 /100 WBC (0); Platelet Count 176 Thou/mm3 (140-440); RDW Standard Deviation 41.8 fL (36.4-46.3); Red Blood Count 5.02 Miln/mm3 (4.00-5.20); White Blood Count 4.9 Thou/mm3 (3.6-11.0)
[2025-05-24 13:27] LABS: INR 3.6 (0.9-1.3); Partial Thromboplastin Time 45.5 Seconds (22.0-36.0)
[2025-05-24 13:33] LABS: Alanine Aminotransferase 46 U/L (10-49); Albumin, Serum 4.4 gm/dL (3.4-4.8); Albumin/Globulin Ratio 1.8 (1.2-2.2); Alkaline Phosphatase 88 U/L (46-116); Anion Gap 14 (7-16); Aspartate Amino Transferase 46 U/L (0-34); BUN/Creatinine Ratio 15 Ratio (12-20); Bilirubin,Total 0.3 mg/dL (0.3-1.2); Blood Urea Nitrogen 18 mg/dL (9-23); Calcium 10.3 mg/dL (8.3-10.6); Calcium (Corrected) 10.3 mg/dL (8.5-10.1); Carbon Dioxide 24.1 mMol/L (20.0-31.0); Chloride 105 mMol/L (98-107); Creatinine (Component) 1.2 mg/dL (0.6-1.3); Estimated Creatinine Clearance 42.6 mL/min (>60); Globulin 2.4 gm/dL (2.3-3.5); Glucose 213 mg/dL (74-106); Lipase 32 U/L (12-53); Osmolality,Calculated 292 (275-295); Potassium 2.9 mMol/L (3.4-5.1); Sodium 143 mMol/L (136-145); Total Protein 6.8 gm/dL (5.7-8.2); eGFR 50 See Note
[2025-05-24 13:36] LABS: Prothrombin Time 36.2 Seconds (9.0-12.2)
[2025-05-24 14:30] LABS: Collection Type, Urine Clean Catch
[2025-05-24 14:44] LABS: Bacteria,Urine 1+; Bilirubin,Urine Negative (Negative); Blood,Urine 1+ (Negative); Budding Yeast,Urine Present; Calcium Oxalate Crystals,Urine Rare; Clarity,Urine Turbid (Clear/Hazy); Color,Urine Lt-Yellow (Lt Yel-Yel); Culture Indicated,Urine Contaminated; Glucose, Urine 4+ (Negative); Ketones,Urine Negative (Negative); Leukocyte Esterase,Urine Positive (Negative); Nitrite,Urine Negative (Negative); PH,Urine 6.0 (5.0-7.0); Protein,Urine Negative (Neg - Trace); RBC,Urine 4 /hpf (0-3); Specific Gravity,Urine 1.012 (1.001-1.035); Squamous Epithelial Cell,Urine 16 /hpf (0-5); Urobilinogen,Urine Negative mg/dL (0.0-1.0); WBC,Urine 37 /hpf (0-5)
[2025-05-24] MEDS: cefTRIAXone/D5w 1gm IV premix 1 GM/50 ML BAG IV (15:15)
--- NOTE | 2025-05-24 16:40 | PC.NURSE ---
pt hypertensive with BP of 204/113. provider notified. orders received and initiated.
[2025-05-24] MEDS: ACETAMINOPHEN 500 MG TABLET 1000 MG PO (16:49)
[2025-05-24] MEDS: hydrALAZINE INJ 20 MG/ML VIAL IVP (16:49)
== END 2025-05-24 19:22 | disposition home or self-care (01) ==
PROVIDERS: Nurse Practitioner Family; Emergency Provider Emergency Medicine; PCP Physician Assistant
DX: N39.0 Urinary tract infection, site not specified (principal); K52.9 Noninfective gastroenteritis and colitis, unspecified; I10 Essential (primary) hypertension; E11.9 Type 2 diabetes mellitus without complications; R10.30 Lower abdominal pain, unspecified
CPT/HCPCS: 36415; 74177; 80053; 81001; 83690; 85025; 85610; 85730; 93005; 96361; 96365; 96375; 99283; A4649; J0360; J0696; J2405; J3490; J7120; Q9967; A9270

== ENCOUNTER → 2025-07-08 | Outpatient (CLI) | payer OTHER, MEDICAID, SELFPAY ==
[2025-07-07 12:37] LABS: Alanine Aminotransferase 13 U/L (10-49); Albumin, Serum 4.6 gm/dL (3.4-4.8); Albumin/Globulin Ratio 1.6 (1.2-2.2); Alkaline Phosphatase 85 U/L (46-116); Anion Gap 9 (7-16); Aspartate Amino Transferase 19 U/L (0-34); BUN/Creatinine Ratio 13 Ratio (12-20); Bilirubin,Total 0.4 mg/dL (0.3-1.2); Blood Urea Nitrogen 14 mg/dL (9-23); Calcium 10.0 mg/dL (8.3-10.6); Calcium (Corrected) 10.0 mg/dL (8.5-10.1); Carbon Dioxide 28.8 mMol/L (20.0-31.0); Chloride 101 mMol/L (98-107); Creatinine (Component) 1.1 mg/dL (0.6-1.3); Globulin 2.9 gm/dL (2.3-3.5); Glucose 190 mg/dL (74-106); Osmolality,Calculated 283 (275-295); Potassium 3.4 mMol/L (3.4-5.1); Sodium 139 mMol/L (136-145); Total Protein 7.5 gm/dL (5.7-8.2); eGFR 55 See Note
[2025-07-07 13:32] LABS: Creatinine MALB Rnd Ur 44 mg/dL (30-125); Microalbumin Creat Ratio 11 mg/gCrea (<30); Microalbumin, Random Urine 5 mg/L (0-300)
--- NOTE | 2025-07-08 15:00 | XR_ITS ---
Examination: MRI of brain without intravenous contrast. MRI brain with intravenous contrast. Date and time of exam:July 08, 2025, 1531 hours, comparison January 31, 2025 INDICATIONS: Increasing memory loss and dizziness difficulty speaking 6 months Technique: Multiple axial and sagittal images of the brain to been obtained. Siemens high-resolution 1.52 Suzi short bore scanner utilized. Sagittal sections, T1 weighted images, TR 500, TE 14, are performed. Axial sections proton-density and T2-weighted images have been obtained. Inversion recovery axial images, TR 9260, TE 111, TR 2500. Diffusion weighted images, axial sections, TR 4800, TE 128, B value 1000. Axial sections, ADC map, TR 4800, TE 128. Axial and coronal images were also obtained post 12 cc gadolinium administered intravenously. Findings:: Enlargement of the sella turcica is not present. The optic chiasm and infundibular stalk are not remarkable. There is no localized enlargement of the medulla or luis miguel. Fourth ventricle and cerebellar tonsils appear normal in position. No subacute area of hemorrhage density is seen. Fourth ventricle is midline. Mass in the cerebellopontine angle region is not evident. 7th and 8th nerve complexes exhibit symmetry Globes are symmetrical Orbital musculature including medial lateral rectus muscles do not exhibit abnormality Increased white matter signal is very prominent Effacement of the cortical sulcal markings is not identified. Mass effect upon the ventricular system is not identified. Diffusion-weighted images demonstrate no focus of restricted diffusion Contrast images demonstrate no abnormal contrast enhancement Impression: Negative for acute hemorrhage mass effect or midline shift No acute infarct Chronic multi-infarct dementia pattern
== END | disposition home or self-care (01) ==
LOC: SMRI 14:50
PROVIDERS: PCP Physician Assistant; Referring Provider Psychiatry & Neurology Neurology; Visit Provider Psychiatry & Neurology Neurology
DX: R41.3 Other amnesia (principal); Z01.812 Encounter for preprocedural laboratory examination
CPT/HCPCS: 36415; 70553; 80053; 82043; 82570; A9577

== ENCOUNTER 2025-08-01 15:55 | Emergency (ER) | payer OTHER, MEDICAID, SELFPAY ==
[2025-08-01] VITALS (7 sets, daily range): BP systolic 158–179; BP diastolic 92–118; PULSE 55–100; RESP 16–18; TEMP 36.8–37.2; O2SAT 96–97; BMI 22.7
--- NOTE | 2025-08-01 17:31 | PC.NURSE ---
business law instructor lacho to be called when ready to be picked up [phone]
--- NOTE | 2025-08-01 17:34 | EKG_ITS ---
[facility] Test Date: 2025-08-01 Pat Name: ROBEL RUSSO Department: Room: - Gender: Female Chaplaincy: : 1955 Requested By: Rocky Phillips Order Number: [id number] Reading MD: Rocky Phillips Measurements Intervals [place] Rate: 57 P: [place]: QRS: 39 QRSD: 117 T: 42 QT: 467 QTc: 457 Interpretive Statements ATRIAL FIBRILLATION WITH SLOW VENTRICULAR RESPONSE SEPTAL MYOCARDIAL INFARCTION , OF INDETERMINATE AGE [40+ ms Q WAVE IN V1/V2] Compared to ECG 05/24/2025 13:59:39 No significant changes /store/S0/[id number]/[id number]
--- NOTE | 2025-08-01 18:23 | PD.EDDIZZY ---
ED Dizzyness RME/HPI General Chief Complaint: Dizziness Stated Complaint: DIZZINESS Time Seen by Provider: 08/01/25 18:09 Arrival date/time: 08/01/25 15:55 RME / HPI RME / HPI Narrative: DR. 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 Patient also suspects UTI and reports dysuria, urinary frequency and urgency. Denies fever and chills. No chest pdain , shortness of breath, or nausea. Patient additionally indicates mitral valve repair, on coumadin with INR of 1.2. PMH: Type II DM, HTN, Valvular Heart Disease, CVA, and Colitis PSH: Mitral valve replacement Allergies: None reported Social: No tobacco, alcohol, or illicit drug use Related Data Home Medications ?Medication ?Instructions ?Recorded ?Confirmed rosuvastatin 40 mg tablet 40 mg PO QDAY 09/15/21 07/26/24 aripiprazole 15 mg tablet 15 mg PO QDAY 10/05/23 07/26/24 cetirizine 10 mg tablet 10 mg PO QDAY 10/05/23 07/26/24 hydrochlorothiazide 50 mg tablet 50 mg PO QDAY 10/05/23 07/26/24 hydroxyzine HCl 25 mg tablet 25 mg PO HS 10/05/23 07/26/24 losartan 100 mg tablet 100 mg PO QPM 10/05/23 07/26/24 sertraline 100 mg tablet 200 mg PO HS 10/05/23 07/26/24 trazodone 50 mg tablet 50 mg PO HS 10/05/23 07/26/24 ferrous sulfate 325 mg (65 mg 325 mg PO BIDWMEAL 07/03/24 07/26/24 iron) tablet Previous Rx's ?Medication ?Instructions ?Recorded warfarin 5 mg tablet 5 mg PO QDAY #14 tabs 07/17/24 meloxicam 7.5 mg tablet 7.5 mg PO QDAY #10 tabs 02/10/25 ciprofloxacin HCl 500 mg tablet 500 mg PO BID #14 tabs 05/24/25 (Cipro) dicyclomine 20 mg tablet 20 mg PO QID PRN abdominal pain 05/24/25 #20 tabs famotidine 20 mg tablet (Pepcid AC) 20 mg PO BID #14 tabs 05/24/25 cefdinir 300 mg capsule 300 mg PO BID 7 days #14 caps 08/01/25 phenazopyridine 100 mg tablet 100 mg PO TID PRN pain #9 tabs 08/01/25 (Pyridium) Allergies Allergy/AdvReac Type Severity Reaction Status Date / Time aspirin Allergy Severe Gastrointestinal Verified 05/24/25 11:00 Upset Review of Systems Review of Systems Systems Reviewed: All systems reviewed, normal except as documented Past Medical History Past Medical History NEUROLOGIC: Positive Neurological Disorders and Cerebrovascular Accident CARDIAC: Positive Cardiac Disorders, Hypercholesterolemia, Congestive Heart Failure, Edema and Hypertension GASTROINTESTINAL: Positive Colitis MUSCULOSKELETAL: Positive Arthritis and Fractures PSYCHO/SOCIAL: Positive Bipolar Disorder and Anxiety OTHER HISTORY: Positive Falls Family History FAMILY HISTORY: Positive Family Psychiatric Problems and Family Cardiac Disorders Surgical History SURGICAL: Positive Cardiac Surgery, Open Heart Surgery, Valve Replacement and Hysterectomy ED Exam Narrative Physical exam: GEN. APPEARANCE: The patient is alert awake oriented X-3 under no distress, lying down comfortably, does not look ill/toxic. Patient has good eye contact. Patient is cooperative. VITALS: All vitals were reviewed and the pulse ox is 97%, which is normal according to my interpretation HEENT: Normocephalic, atraumatic and nontender. Pupils are equal and reactive. No niastagmus illicited Oral mucosa is moist. NECK: Supple, nontender, no meningismus, no JVD. There is no thyromegaly and no lymphadenopathy. CHEST: Nontender on palpation no deformity and no crepitus. CARDIOVASCULAR: Heart regular rhythm, no murmur or gallop rub or extra beats. LUNGS: Clear to auscultation bilaterally with symmetrical chest rise. No laboring tachypnea or wheezing. No intercostal subcostal retraction. No rales and no rhonchi. ABDOMEN: Soft, flat, nontender to palpation, no guarding or rebound tenderness. There are no abnormal masses palpated. No pulsatile masses or bruits. Active and normal bowel sounds. EXTREMITIES:.Normal inspection and palpation. No edema. No cyanosis. Patient is able to move all 4 extremities well SKIN: Warm and dry, no rashes noted. MUSCULOSKELETAL: No lumbar or midline bony tenderness. There is no CVA tenderness. No paraspinal muscle spasm or tenderness. NEURO: Cranial nerves II through XII grossly intact. GCS is 15. Mild right-sided motor weakness, normal finger to nose, gait not observed. PSYCHIATRIC: Patient is in normal mood and affect, cooperative. LYMPHATICS: No major lymphadenopathy noted. Course Quality Measures none Orders Category Date Time Status Bedside Blood Glucose NOW Care 08/01/25 17:34 Active Specimen Technician NOW Care 08/01/25 17:35 Active Continuous Pulse Oximetry NOW Care 08/01/25 17:34 Completed EKG (ED ONLY) *Do not use* NOW Care 08/01/25 17:35 Completed Insert IV NOW Care 08/01/25 17:35 Completed EKG (ED Only) Stat Exams 08/01/25 17:34 Draft CBC Stat Lab 08/01/25 18:05 Completed Comprehensive Metabolic Panel Stat Lab 08/01/25 18:05 Completed PT [Prothrombin Time with INR] Stat Lab 08/01/25 23:42 Completed PTT [Partial Thromboplastin Time] Stat Lab 08/01/25 23:42 Completed Troponin I Stat Lab 08/01/25 18:05 Completed Urinalysis, C/S if Indicated Stat Lab 08/01/25 18:19 Completed Urine Culture Stat Lab 08/01/25 18:19 Received Sodium Chloride 0.9% 500 ml [Ns] 500 ml Med 08/01/25 22:47 Discontinued IV 999 mls/hr cefTRIAXone/D5w 1gm IV premix [Rocephin/D5w 1gm IV Med 08/01/25 22:41 Discontinued premix] 1 gm in 50 ml IV X1 hydrALAZINE INJ [Apresoline Inj] Med 08/01/25 19:07 Discontinued 10 mg IVP X1 ONE Vital Signs Vital signs: Vital Signs Temperature 98.9 F 08/01/25 16:09 Pulse Rate 100 08/01/25 16:09 Respiratory Rate 17 08/01/25 16:09 Blood Pressure 161/92 H 08/01/25 16:09 Dizziness MDM Narrative MDM Narrative:: Scribe Attestation: ILatoya am scribing for and in the presence of Dr. Echeverria. Provider Notation: Although this document has been carefully reviewed, there may still be some phonetic and other typographical errors. These errors are purely grammatical due to imperfections in the software program and should not be construed in any way to compromise the substance of the patient's medical care during this visit. 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 Patient also suspects UTI and reports dysuria, urinary frequency and urgency. Please see PE findings. Laboratory findings, including CBC, demonstrates nromal WBC, no anemia or thrombocytopenia. Serum chemistries demonstrate low potassium at 3.2, chronic renal insufficiency, and negative Troponin I. UA demonstrates pyuria and positve leukocyte esterase and nitrite reaction. EKG in controlled A-fib. Patient received IV fluids and Rocephin. No signs of underlying sepsis. Hydrated with normal saline and treated with imperic antibiotics. Patient data External records reviewed:: [facility] previous records (Reviewed prior ED records from 05/24/25. Patient was seen for Colitis.) Clinical information provided by:: patient Social determinants that could affect healthcare access:: none Patient has the following chronic illnesses:: Cerebrovascular Accident, Hypercholesterolemia, Congestive Heart Failure, Edema, Hypertension, Colitis, Arthritis, Bipolar Disorder, and Anxiety How is presenting disease/condition affected by chronic disease/condition?: exacerbated by Evaluation data The following diagnostics were reviewed and interpreted by me:: lab results and EKG tracing(s) (EKG shows controlled Atrial fibrillation at 57 bpm, no acute ST segment elevations, no ventricular ectopy, axis normal, previous interseptimal CT, per my interpretation.) Lab and/or radiology exams considered but not ordered:: None Interpretation Summary: See MDM above Medications / Prescriptions Medications or Prescriptions considered but not ordered:: None Medication administrations:: Medication Administration History Discontinued Medications Hydralazine HCl (Hydralazine Inj 20 Mg/Ml Vial) 10 mg IVP X1 ONE Stop: 08/01/25 19:08 Last Admin: 08/01/25 20:13 Dose: 10 mg Documented By: STANISLAW Ceftriaxone Sodium/Dextrose (Rocephin/D5w 1gm Iv Premix) 1 gm in 50 mls @ 100 mls/hr IV X1 ONE Stop: 08/01/25 23:10 Last Infusion: 08/01/25 23:41 Dose: Infused Documented By: Admin: 08/01/25 22:58 Dose: 100 mls/hr Documented By: STANISLAW Sodium Chloride (Ns) 500 mls @ 999 mls/hr IV .Q31M ONE Stop: 08/01/25 23:17 Last Infusion: 08/01/25 23:40 Dose: Infused Documented By: Admin: 08/01/25 22:57 Dose: 999 mls/hr Documented By: STANISLAW See above if any Consultations Consultation(s) initiated? (list below): No Diagnosis Dizziness Differential Diagnosis: adverse reaction to drug, benign paroxysmal positional vertigo, orthostatic hypotension, vertebral basilar insufficiency, cerebrovascular accident and acute vestibular neuronitis Most likely diagnosis given after review of the tests above:: Episodic lightheadedness and UTI Admission Indicated Admission indicated?: not indicated Explain why admission is indicated or not indicated:: Patient does not meet admission criteria. Admission Request Was there a request for admission?: No Disposition Plan Disposition Plan: Discharge Discharge Attestation Discharge Attestation: The patient and all family members were given an opportunity to ask questions and understood the discharge instructions. Discharge instructions specifically effects, indications for sooner follow up or return to the emergency department, and the expected course of current diagnosis. Patient condition: Stable Discharge Plan Plan Patient Disposition: HOME (Self Care) Discharge Disposition comment: stable Prescriptions/Referrals Prescriptions/Med Rec: New cefdinir 300 mg capsule 300 mg PO BID 7 Days Qty: 14 0RF phenazopyridine [Pyridium] 100 mg tablet 100 mg PO TID PRN (Reason: pain) Qty: 9 0RF No Action rosuvastatin 40 mg tablet 40 mg PO QDAY meloxicam 7.5 mg tablet 7.5 mg PO QDAY Qty: 10 0RF trazodone 50 mg Tablet 50 mg PO HS cetirizine 10 mg Tablet 10 mg PO QDAY hydrochlorothiazide 50 mg Tablet 50 mg PO QDAY sertraline 100 mg Tablet 200 mg PO HS hydroxyzine HCl 25 mg Tablet 25 mg PO HS losartan 100 mg Tablet 100 mg PO QPM aripiprazole 15 mg Tablet 15 mg PO QDAY ferrous sulfate 325 mg (65 mg iron) Tablet 325 mg PO BIDWMEAL warfarin 5 mg tablet 5 mg PO QDAY Qty: 14 2RF ciprofloxacin HCl [Cipro] 500 mg tablet 500 mg PO BID Qty: 14 0RF dicyclomine 20 mg tablet 20 mg PO QID PRN (Reason: abdominal pain) Qty: 20 0RF famotidine [Pepcid AC] 20 mg tablet 20 mg PO BID Qty: 14 0RF Referrals: No Primary/Family,Physician [Primary Care Provider] - In 1 week Problem List Clinical Impression: Episodic lightheadedness, UTI (urinary tract infection) Impression comment: UTI/ lightheadedness Patient/Caregiver Discharge Instructions Discharge Activity: activity as tolerated Diet Instructions: Force fluids Education Materials: Urinary Tract Infections in Women, ED Dizziness, Uncertain Cause, ED CYSTITIS Female Adult Additional Instructions: Increase fluid hydration. Medication as directed. Follow-up with primary care doctor for repeat urinalysis in 7 days. Print Language: Barbadian Stand Alone Forms: [employer] Award Info., Patient Portal Info Letter
[2025-08-01 18:25] LABS: Basophils # (Auto) 0.1 Thou/mm3 (0.0-0.2); Basophils % (Auto) 1 % (0-2.5); Eosinophils # (Auto) 0.1 Thou/mm3 (0.0-0.5); Eosinophils % (Auto) 2 % (0-10); Hematocrit 41.1 % (36.0-46.0); Hemoglobin 14.2 g/dL (12.0-16.0); Immature Granulocytes Auto 0.01 Thou/mm3 (0.00-0.00); Lymphocytes # (Auto) 2.4 Thou/mm3 (1.0-4.8); Lymphocytes % (Auto) 46 % (10-50); Mean Corpuscular HGB Conc 34.5 g/dl (31.0-37.0); Mean Corpuscular Hemoglobin 29.6 pg (25.0-35.0); Mean Corpuscular Volume 86 fL (80-100); Monocytes # (Auto) 0.5 Thou/mm3 (0.0-0.8); Monocytes % (Auto) 9 % (0-12); Neutrophils # (Auto) 2.2 Thou/mm3 (1.8-7.7); Neutrophils % (Auto) 41 % (37-80); Nucleated Red Blood Cell # 0.00 Thou/mm3 (0.00-0.00); Nucleated Red Blood Cell % 0 /100 WBC (0); Platelet Count 235 Thou/mm3 (140-440); RDW Standard Deviation 42.1 fL (36.4-46.3); Red Blood Count 4.80 Miln/mm3 (4.00-5.20); White Blood Count 5.3 Thou/mm3 (3.6-11.0)
[2025-08-01 18:27] LABS: Collection Type, Urine Clean Catch
[2025-08-01 18:40] LABS: Alanine Aminotransferase 12 U/L (10-49); Albumin, Serum 4.7 gm/dL (3.4-4.8); Albumin/Globulin Ratio 2.0 (1.2-2.2); Alkaline Phosphatase 81 U/L (46-116); Anion Gap 13 (7-16); Aspartate Amino Transferase 20 U/L (0-34); BUN/Creatinine Ratio 23 Ratio (12-20); Bilirubin,Total 0.3 mg/dL (0.3-1.2); Blood Urea Nitrogen 27 mg/dL (9-23); Calcium 9.4 mg/dL (8.3-10.6); Calcium (Corrected) 9.4 mg/dL (8.5-10.1); Carbon Dioxide 26.7 mMol/L (20.0-31.0); Chloride 102 mMol/L (98-107); Creatinine (Component) 1.2 mg/dL (0.6-1.3); Estimated Creatinine Clearance 44.2 mL/min (>60); Globulin 2.3 gm/dL (2.3-3.5); Glucose 163 mg/dL (74-106); Osmolality,Calculated 292 (275-295); Potassium 3.2 mMol/L (3.4-5.1); Sodium 142 mMol/L (136-145); Total Protein 7.0 gm/dL (5.7-8.2); Troponin I < 0.020 ng/mL (0.0-0.045); eGFR 50 See Note
[2025-08-01 18:42] LABS: Bacteria,Urine Rare; Bilirubin,Urine Negative (Negative); Blood,Urine Trace (Negative); Budding Yeast,Urine Present; Clarity,Urine Turbid (Clear/Hazy); Color,Urine Lt-Yellow (Lt Yel-Yel); Glucose, Urine 4+ (Negative); Ketones,Urine Negative (Negative); Leukocyte Esterase,Urine Positive (Negative); Nitrite,Urine Positive (Negative); PH,Urine 6.0 (5.0-7.0); Protein,Urine Negative (Neg - Trace); RBC,Urine 8 /hpf (0-3); Specific Gravity,Urine 1.019 (1.001-1.035); Squamous Epithelial Cell,Urine 5 /hpf (0-5); Urobilinogen,Urine Negative mg/dL (0.0-1.0); WBC,Urine 140 /hpf (0-5)
[2025-08-01 18:49] LABS: Culture Indicated,Urine Yes
[2025-08-01] MEDS: hydrALAZINE INJ 20 MG/ML VIAL 10 MG IVP (20:13)
[2025-08-01] MEDS: SODIUM CHLORIDE 0.9% 500 ML 500 ML 999 ML IV (22:57)
[2025-08-01] MEDS: cefTRIAXone/D5w 1gm IV premix 1 GM/50 ML BAG IV (22:58)
[2025-08-02 00:06] VITALS: BP 156/86; PULSE 74; RESP 16; TEMP 36.8; O2SAT 97
--- NOTE | 2025-08-02 00:33 | PC.NURSE ---
called family member for ride, no answer at this time message left
--- NOTE | 2025-08-02 00:55 | PC.NURSE ---
attempt to call care provider for ride. no answer at this time
[2025-08-02 00:56] LABS: INR 1.5 (0.9-1.3); Partial Thromboplastin Time 35.8 Seconds (22.0-36.0); Prothrombin Time 15.1 Seconds (9.0-12.2)
--- NOTE | 2025-08-02 01:55 | PC.NURSE ---
called for ride no answer
[2025-08-02 02:11] VITALS: BP 145/97; PULSE 96; RESP 17; TEMP 36.6; O2SAT 98
[2025-08-02 04:31] VITALS: BP 139/95; PULSE 89; RESP 19; TEMP 36.8; O2SAT 96
[2025-08-02] MEDS: WARFARIN 5 MG TABLET 6 MG PO (04:52)
[2025-08-02 06:31] VITALS: BP 135/83; PULSE 88; RESP 16; TEMP 36.7; O2SAT 95
--- NOTE | 2025-08-02 06:33 | PC.NURSE ---
ATTEMPT TO CALL FOR RIDE MULTIPLE TIMES THROUGHOUT NIGHT WITH NO ANSWER.
--- NOTE | 2025-08-02 07:30 | PC.NURSE ---
Pt. here from [facility] to room 19, pt. states she is going home, SS bedside and talking with pt., pt. states no pain, doesn't need anything at this time. No s/s of distress noted.
--- NOTE | 2025-08-02 07:32 | PC.CC ---
Central Office Repairer Supervisor, Kaelyn informed by screw supervisorTod that patient was ready for discharge. CC met with patient to discuss transportation needs. Patient appeared alert and oriented to self, place and situation. Patient was able to verify her address and reported that she has keys to enter her apartment. Patient explained that she resides alone at the apartment, but does have a caregiver that provides assistance to her. Patient reported that for the most part she is independent with the assistance of a rollator. CC contacted [employer] and spoke to Lis to schedule stretcher transportation[id number]
== END 2025-08-02 08:10 | disposition home or self-care (01) ==
PROVIDERS: Family Medicine; Emergency Provider Emergency Medicine
DX: R42 Dizziness and giddiness (principal); N39.0 Urinary tract infection, site not specified; E11.9 Type 2 diabetes mellitus without complications; I10 Essential (primary) hypertension; Z79.01 Long term (current) use of anticoagulants; Z90.710 Acquired absence of both cervix and uterus; Z95.2 Presence of prosthetic heart valve
CPT/HCPCS: 36415; 80053; 81001; 84484; 85025; 85610; 85730; 87077; 87086; 87186; 93005; 96365; 96375; 99284; J0360; J0696; J7999; A9270

== ENCOUNTER → 2025-08-11 | Outpatient (CLI) | payer OTHER, MEDICAID, SELFPAY ==
--- NOTE | 2025-08-11 13:16 | XR_ITS ---
Examination: Foot, right, 3 views Technique: AP, oblique, lateral views foot, 3 views Date and time of exam: August 11, 2025, 1338 hours INDICATIONS: Right foot pain 1 year. FINDINGS: Significant osteopenia Mild bunion deformity Mild to moderate narrowing first metatarsophalangeal joint No fracture IMPRESSION: Significant osteopenia Mild bunion deformity Mild to moderate narrowing first metatarsophalangeal joint
== END | disposition home or self-care (01) ==
LOC: SDIM 13:10
PROVIDERS: PCP Physician Assistant; Referring Provider Physician Assistant; Visit Provider Physician Assistant
DX: M85.871 Other specified disorders of bone density and structure, right ankle and foot (principal); M21.611 Bunion of right foot; M25.871 Other specified joint disorders, right ankle and foot
CPT/HCPCS: 73630